=== PATIENT | female | born 1995 | race African-American/Black ===

== ENCOUNTER → 2018-11-20 17:31 | Outpatient (CLI) | payer OTHER ==
[~2018-11-20 17:31] MED LIST: TYLENOL #4 W/CO1 TAB PO
[2018-11-21 05:33] VITALS: BMI 24.8
== END | disposition home or self-care (01) ==
LOC: D.LDO 17:31
PROVIDERS: ATTEND Obstetrics & Gynecology
DX: O26.899 Other specified pregnancy related conditions, unspecified trimester (principal); Z3A.00 Weeks of gestation of pregnancy not specified

== ENCOUNTER 2018-11-21 05:07 | Inpatient (IN) | payer OTHER ==
[~2018-11-21] VITALS: Ht 166.4 cm; Wt 68.5 kg
[2018-11-21 05:33] VITALS: BP 108/57; Ht 166.4 cm; Wt 68.5 kg
[2018-11-21 06:17] LABS: UDS - AMPHET NEGATIVE QUAL (NEGATIVE); UDS - BARB NEGATIVE QUAL (NEGATIVE); UDS - BENZO NEGATIVE QUAL (NEGATIVE); UDS - COCAINE NEGATIVE QUAL (NEGATIVE); UDS - OPIATE NEGATIVE QUAL (NEGATIVE); UDS - PCP NEGATIVE QUAL (NEGATIVE); UDS - THC NEGATIVE QUAL (NEGATIVE)
[2018-11-21 06:25] LABS: HEMATOCRIT 36.4 % (36.0-48.0); HEMOGLOBIN 12.5 g/dL (12-16); MCHC 34.3 g/dL (31.0-37.0); MCV 81.6 fL (80.0-100.0); MEAN PLATELET VOLUME 10.9 fL (7.4-10.4); RBC 4.46 10x6/uL (4.00-5.40); RDW 14.2 % (11.5-14.5)
[2018-11-21 06:46] LABS: APPEARANCE CLEAR (CLEAR); BILIRUBIN NEGATIVE (NEGATIVE); COLOR YELLOW (YELLOW); GLUCOSE NEGATIVE (NEGATIVE); KETONE LARGE mg/dL (NEGATIVE); NITRITE NEGATIVE (NEGATIVE); PROTEIN NEGATIVE (NEGATIVE); SPECIFIC GRAVITY 1.015 (1.005-1.020)
[2018-11-21 20:10] VITALS: BP 114/66
--- NOTE | 2018-11-21 20:10 | NUR ---
PT REC'D IN BED AT THIS TIME. STATES PAIN IS A 5. VSS. LUNGS CLEAR. BS+. FUNDUS FIRM AND MIDLINE U/2 WITH SCANT LOCHIA NOTED. HIRSCH CATH PATENT WITH RADHA URINE NOTED. NO ACUTE DISTRESS NTOED AT THIS TIME. SIDERAILS UP FOR SAFETY. CALL LIGHT IN PT REACH. AARON GALLO
--- NOTE | 2018-11-21 21:10 | NUR ---
PERICARE PROVIDED AND ICE PACK PLACED AT THIS TIME. Sonali COSME RN
--- NOTE | 2018-11-21 23:41 | NUR ---
PT MEDICATED AT THIS TIME FOR PAIN LEVEL OF 8. WILL CONTINUE TO MONITOR. Sonali COMSE RN
--- NOTE | 2018-11-22 00:52 | NUR ---
PT ASLEEP BUT EASILY AWAKENED. PT REPORTS PAIN LEVEL OF 2 AT THIS TIME. Sonali COSME RN
--- NOTE | 2018-11-22 02:25 | NUR ---
PT REC'D IN BED AT THIS TIME. BREAST FEEDING AT THIS TIME. NO DISTRESS N NOTED. Sonali COSME RN
--- NOTE | 2018-11-22 03:59 | NUR ---
pt medicated with norco 10. pericare provided at this time. icepack provided and mackey cath empted. 600 ml of tobi urine noted. ben segal rn
--- NOTE | 2018-11-22 04:50 | NUR ---
Pt resting comfortably at this time. resps even and unlabored. ben segal rn
--- NOTE | 2018-11-22 06:11 | NUR ---
pt resting comfortably at this time. denies pain. denies needs at this time. ice pack to perineum. no distress noted. ben segal rn
[2018-11-22 06:12] LABS: BASOPHILS 0.1 % (0-2); EOSINOPHILS 0.4 % (0-7); IMMATURE GRANULOCYTES 0.5 % (0-5); LYMPHOCYTES 13.8 % (15-50); MCH 27.7 pg (26.0-34.0); MCHC 34.1 g/dL (31.0-37.0); MCV 81.2 fL (80.0-100.0); MONOCYTES 9.4 % (2-11); NEUTROPHILS 75.8 % (40-80); PLATELET COUNT 115 10x3/uL (130-400); RDW 14.3 % (11.5-14.5)
[2018-11-22 06:24] LABS: HEMATOCRIT 25.5 % (36.0-48.0); HEMOGLOBIN 8.7 g/dL (12-16); RBC 3.14 10x6/uL (4.00-5.40); WBC 15.3 10x3/uL (4.8-10.8)
[2018-11-22 07:14] LABS: RAPID PLASMA REAGIN Non Reactive (Non Reactive)
[2018-11-22 07:25] VITALS: BP 102/62
--- NOTE | 2018-11-22 07:25 | NUR ---
AM ASSESSMENT COMPLETED, SEE FLOWSHEET. NEW ICE PACK WITH DERMAPLAST SPRAY TO PERINEUM, ALONG WITH PROCTOFOAM TO PERINEUM, AND TUCKS PADS PLACED TO PERINEUM. IN ROOM IN CRIB, NO DISTRESS NOTED. LARGE MUG OF ICE WATER SERVED TO PT. REGULAR BREAKFAST TRAY ON BEDSIDE TABLE. SR UP X2, CALL LIGHT AND PHONE WITHIN REACH. PT DENIES ALL OTHER NEEDS.
--- NOTE | 2018-11-22 08:30 | NUR ---
DR. FRAUSTO ON UNIT, REPORT GIVEN TO MD BY NATASHA,RN, MD WILL EVALUATE HIRSCH CATH/PERINEAL SWELLING THIS AFTERNOON.
--- NOTE | 2018-11-22 10:35 | NUR ---
pt sitting up in the bed, holding infant. pt denies pain or needs at this time. srup x2, call light and phone within reach.
--- NOTE | 2018-11-22 12:38 | NUR ---
pt sitting up in bed holding . requests pain medication, see emar for all meds administered by this RN. new ice pack to perineum with dermaplast, tucks and proctofoam. moderate labial swelling noted, no bruising to perineum at this time. infant placed in crib swaddled x2, no distress noted. fluids encouraged. srup x2. call light and phone within reach. pt denies anyother needs at this time.
--- NOTE | 2018-11-22 15:00 | NUR ---
to pt's room, pt is lying in bed, holding infant. placed in crib, no distress noted. plan of care discussed with pt to d/c mackey cath, and to ambulate. perineum noted to be intact, no redness, bruising or drainage visualized. mild labial swelling noted. mackey cath dc'd intact with 700 ml's yellow urine in mackey bag. perineal care done with warm wet washcloths, scant rubra lochia, no clots noted. dermaplast, and tucks pads applied to perineum, along with new ice pack. peripanties on. pt assisted out of bed, standing at bedside, pt denies dizziness or sob. pt assisted to ambulate in room, then to couch to sit. pillows placed underneath pt on couch for comfort. in crib placed beside mother. bed linens changed. pt wishes to sit up for a little while. will return for med adm, and vitals. pt denies all other needs at this time.
--- NOTE | 2018-11-22 15:45 | NUR ---
pt continues to sit on couch. cell phone within reach. pt feeding infant at this time. pt denies all other needs.
[2018-11-22 15:52] VITALS: BP 105/68
--- NOTE | 2018-11-22 16:45 | NUR ---
pt assisted back to bed, gait slow and steady. back to bed. pt denies dizziness, or sob, or difficulty breathing. scant rubra lochia noted, fundus firm, u/1, no clots noted. pt denies needing to void. no bladder distension palpated. ice pack to perineum, with tucks pads in place. peripanties on. infant in crib, sleeping, with no distress noted. sr up x2, call light and phone within reach. pt denies all other needs.
--- NOTE | 2018-11-22 18:15 | NUR ---
pt calls out occupational therapy professor light, requesting to get up to the bathroom to try and void. pt assisted to br, gait slow but steady. call light within reach.
--- NOTE | 2018-11-22 18:30 | NUR ---
pt voids 150 ml's dark yellow urine in [facility]. pericare done with warm wet washcloths per self. pt wishes to take a shower. clean linens provided, pt's family at bedside. bed linens changed.
--- NOTE | 2018-11-22 18:45 | NUR ---
pt back to bed, family at bedside. srup x2, call light and phone within reach. pt denies difficulty voiding, states "it did sting just a little when i went to pee". pericare perfomed per self with lidocaine jelly, tucks pads, and peripanties/pads on. large ice water served. pt denies all other needs. sr up x2, call light within reach.
--- NOTE | 2018-11-22 19:09 | NUR ---
BEDSIDE REPORT REC'D FROM Kamaljit MUIR RN. PT REC'D SITTING IN HIGH FOWLERS POSITION CONVERSING WITH VISITORS. PLAN OF CARE DISCUSSED WITH PT, VERBALIZES UNDERSTANDING AND DENIES QUESTIONS.
[2018-11-22 19:15] VITALS: BP 112/68
--- NOTE | 2018-11-22 19:15 | NUR ---
SHIFT ASSESSMENT COMPLETED PER FLOWSHEET. VSS. FUNDUS FIRM MIDLINE AND U2 WITH SCANT RUBRA LOCHIA, NO CLOTS NOTED. 150 MLS TEA COLORED URINE EMPTIED FROM HAT. 3+ BILATERAL LABIAL EDEMA NOTED, LACERATIONS WELL APPROXIMATED WITH SUTURES INTACT, NO S/S OF INFECTION NOTED. PT REPORTS THAT SHE PERFORMED PERICARE WITHOUT DIFFICULTY USING TUX, DERMAPLAST AND LIDOCAINE GEL AND DENIES QUESTIONS, STATES THAT SHE DOES NOT HAVE PERIBOTTLE AND BETADINE, WILL PROVIDE AND EDUCATE ON USE. PAIN 4/10, PERINEAL SORENESS AND BURNING REQUESTS PAIN MEDICATION WHEN AVAILABLE, WILL PROVIDE PER ORDER AND PT REQUEST. REPORTS THAT SHE IS PASSING FLATUS AND VOIDED WITHOUT DIFFICULTY. EDUCATED ON BREAST FEEDING, NIPPLE CARE, AND DIET TO INCREASE BREAST MILK SUPPLY, VERBALIZES UNDERSTANDING AND DENIES QUESTIONS. EDUCATED ON S/S OF INFECTION TO REPORT, VERBALIZES UNDERSTANDING. INFANT FUSSING AND ROOTING, ASSISTED PT WITH GETTING LATCHED PER PT REQUEST. DENIES ADDITIONAL NEEDS AT THIS TIME. BED IN LOW POSITION WITH UPPER SIDE RAILS RAISED X2. CALL LIGHT AND PHONE WITHIN REACH. WILL CONTINUE TO MONITOR.
--- NOTE | 2018-11-22 19:58 | NUR ---
CONTINUES TO C/O PERINEAL BURNING AND STINGING 07/18. NORCO OFFERED PER ORDER AND PREVIOUSLY DISCUSSED, PT STATES THAT SHE WOULD LIKE TO WAIT AT THIS TIME. REPORTS THAT SHE HAS FAMILY COMING TO VISIT AND PAIN MED WILL MAKE HER DROWSY. INSTRUCTED TO NOTIFY RN WHEN SHE WOULD LIKE OR NEEDS MED, VERBALIZES UNDERSTANDING. PERIBOTTLE AND BETADINE PROVIDED, INSTRUCTED ON USE, VERBALIZES UNDERSTANDING AND STATES THAT SHE WILL NOTIFY RN IF ASSISTANCE IS NEEDED. BED IN LOW POSITION WITH UPPER SIDE RAILS RAISED X2. CALL LIGHT AND PHONE WITHIN REACH.
--- NOTE | 2018-11-22 21:39 | NUR ---
PYRIDUM GIVEN PER ORDER. PAIN REMAINS 4/10 PERINEAL BURNING AND STINGING, DENIES NEED FOR INTERVENTION AT THIS TIME. STATES THAT SHE WILL ASK FOR MEDICATION PRN. VOIDED 200 MLS IN HAT, REINFORCED TEACHING ON USE OF PERIBOTTLE WITH BETADINE WASH WITH RETURN DEMONSTRATION OF UNDERSTANDING. DENIES ADDITIONAL NEEDS. ICE WATER PROVIDED AND PT ENCOURAGED TO INCREASE PO FLUIDS, VERBALIZES UNDERSTANDING. BED IN LOW POSITION WITH UPPER SIDE RAILS RAISED X2. CALL LIGHT AND PHONE WITHIN REACH.
--- NOTE | 2018-11-22 23:38 | NUR ---
C/O PERINEAL BURNING, STINGING, ACHING, AND THROBBING 11/17. NORCO GIVEN PER ORDER AND PT REQUEST. UP TO BR, VOIDED 200 MLS ORANGE TINGED URINE IN HAT. PERICARE DONE PER PT. DENIES ADDITIONAL NEEDS. INFANT RESTING IN OPEN CRIB AT BEDSIDE. BED IN LOW POSITION WITH UPPER SIDE RAILS RAISED X2. CALL LIGHT AND PHONE WITHIN REACH. WILL CONTINUE TO MONITOR.
--- NOTE | 2018-11-23 00:47 | NUR ---
PAIN REASSESSMENT COMPLETED, 2-06/17, DENIES NEED FOR ADDITIONAL INTERVENTION. ICE WATER PROVIDED. INFANT RESTING QUIETLY IN OPEN CRIB AT BEDSIDE. BED IN LOW POSITION WITH UPPER SIDE RAILS RAISED X2. CALL LIGHT AND PHONE WITHIN REACH. WILL CONTINUE TO MONITOR.
--- NOTE | 2018-11-23 01:20 | NUR ---
TO NBN PER PT REQUEST. DENIES NEEDS AT THIS TIME. PAIN 1-05/20. REPORTS THAT SHE IS GOING TO TRY TO TAKE A NAP BEFORE NEEDING TO BF AT 0230. BED IN LOW POSITION WITH UPPER SIDE RAILS RAISED X2. CALL LIGHT AND PHONE WITHIN REACH. WILL CONTINUE TO MONITOR.
--- NOTE | 2018-11-23 02:48 | NUR ---
RESTING QUIETLY LAYING ON RIGHT SIDE. RESP REGULAR AND UNLABORED, NO S/S OF DISTRESS NOTED. REMAINS IN NBN. BED IN LOW POSITION WITH UPPER SIDE RAILS RAISED X2. CALL LIGHT AND PHONE WITHIN REACH. WILL CONTINUE TO MONITOR AND ASSIST PRN.
--- NOTE | 2018-11-23 04:31 | NUR ---
RESTING QUIETLY IN SEMI-FOWLERS POSITION. RESP REGULAR AND UNLABORED, NO S/S OF DISTRESS NOTED. REMAINS IN NBN. BED IN LOW POSITION WITH UPPER SIDE RAILS RAISED X2. CALL LIGHT AND PHONE WITHIN REACH. WILL CONTINUE TO MONITOR.
[2018-11-23 07:58] VITALS: BP 105/66
--- NOTE | 2018-11-23 08:03 | NUR ---
AM ASSESSMENT COMPLETED. SEE FLOWSHEET. SRUP X2, CALL LIGHT AND PHONE WITHIN REACH. PT DENIES ALL OTHER NEEDS.
--- NOTE | 2018-11-23 08:39 | OP ---
PATIENT NAME: YOMI ARROYO MEDICAL RECORD: [id number] :93 LOCATION:[id number] ADMISSION DATE:11/21/18 SURGEON: ROYAL FRAUSTO MD DATE OF OPERATION: 11/21/2018 PREDELIVERY DIAGNOSES: 1. at 40 weeks and 1-day gestation. 2. Nonreassuring tracing. POSTDELIVERY DIAGNOSES: 1. Mother delivered at 40 weeks and 1 day. 2. Nonreassuring tracing. PROCEDURE: Vacuum-assisted vaginal delivery. ATTENDING: Royal Frausto MD ANESTHETIC: Continuous lumbar epidural. FINDINGS: Viable female , ELAINE presentation, Apgars were 9 and 9, weight 6 pounds 8 ounces. Deep variable decelerations, requiring vacuum assistance. Periurethral laceration with bilateral vaginal wall lacerations. Midline episiotomy repaired. SPECIMEN REMOVED: Placenta. SPECIMEN DISPOSITION: Discarded. ESTIMATED BLOOD LOSS: 450 cc. DRAINS: Carranza to gravity. INDICATION: The patient is a 22-year-old G1, para 0 at 40 weeks' gestation in the second stage of labor. The patient began to have brisk vaginal bleeding with deep variable decelerations. The patient gave verbal consent for vacuum assist. DESCRIPTION OF THIS PROCEDURE: After informed consent was given, a vacuum was applied and was delivered after 2 contractions with release of the vacuum between each contraction. The patient was noted to be bleeding prior to the delivery. After delivery of the , cords clamped and cut and the infant was passed to the attendant. The cord blood sample was obtained and still pending at the time of this dictation. After delivery of the placenta, the vulva and the vagina was inspected. A midline episiotomy was cut to accommodate the vertex and expedite delivery. There was no extension. Examination of the vaginal vault reveals 2 deep lacerations on both right and left of the posterior fourchette. These extended from the 3 and 9 o'clock respectively, down to the 6 o'clock positions. This was initially closed with running stitch of 3-0 chromic bilaterally. A 2-0 chromic is now used to repair the episiotomy in a continuous stitch. Inspection of the vulva reveals a bleeding periurethral laceration. A red rubber catheter was placed in here and interrupted 4-0 chromic stitches were applied. Carranza catheter was started at the close of this procedure. It was noted that there was nuchal cord that was reduced easily at the time of delivery. Vaginal vault was explored and no sponges retained. Both mother and infant recovered in delivery room. OPERATIVE REPORT [id number] YOMI ARROYO TRANSINT:[id number] Voice Confirmation ID: [id number] DOCUMENT ID: [id number] ROYAL FRAUSTO MD at 0839 CC: [id number] DICTATION DATE: 11/21/18 1213 CRIB PAD MAKER: 11/21/18 1301 ADM IN [facility] [address] [id number]
--- NOTE | 2018-11-23 11:01 | NUR ---
THIS RN TO ROOM FOR PT C/O PAIN. PT ADMIN SCHEDULED MED WELL PRN PAIN MED FOR PAIN RATED 8/10, PERINEAL PRESSURE AND PAIN. SEE EMAR FOR DOC. PT REFUSES NICOTINE PATCH. PT PROVIDED WITH FRESH ICE WATER, DENIES NEEDS. HOLDING AT THIS TIME, AWAKE AND ALERT. SRUx2, CL IN REACH. WILL CONT TO MONITOR.
[2018-11-23] MEDS ORDERED: TYLENOL #4 W/CO1 TAB PO (14:38)
--- NOTE | 2018-11-23 15:00 | NUR ---
DISCHARGE INSTRUCTIONS EXPLAINED TO PT, PT DENIES ALL QUESTIONS. PT PROVIDED WITH COPY OF D/C INSTRUCTIONS, PRESCRIPTION, APPT CARD, AND EDUCATIONAL MATERIAL COVERING VAG DELIVERY, SITZ BATH, AND PP INSTUCTION SHEET. SITZ BATH SENT HOME WITH PT, ALONG WITH PERIBOTTLE AND BETADINE. AWAITING TDAP.
--- NOTE | 2018-11-23 16:00 | NUR ---
pt ambulatory in room, preparing pt for discharge. iv d/c'd with intact. pt dressed and ready for discharge.
--- NOTE | 2018-11-23 16:15 | NUR ---
pt taken out by wheelchair in stable condition with in carseat with pt's brother driving.
== END 2018-11-23 16:15 | disposition home or self-care (01) | DRG 807 ==
LOC: D.LDO 05:07 → D.LD 05:44
PROVIDERS: ADMIT Obstetrics & Gynecology; ATTEND Obstetrics & Gynecology
PROC: 10D07Z6 Extraction of Products of Conception, Vacuum, Via Natural or Artificial Opening (ICD-10-PCS; principal; 2018-11-21)
PROC: 0KQM0ZZ Repair Perineum Muscle, Open Approach (ICD-10-PCS; 2018-11-21)
PROC: 0W8NXZZ Division of Female Perineum, External Approach (ICD-10-PCS; 2018-11-21)
DX: O99.824 Streptococcus B carrier state complicating childbirth (principal); Z37.0 Single live birth; Z3A.40 40 weeks gestation of pregnancy; O76 Abnormality in fetal heart rate and rhythm complicating labor and delivery; O71.82 Other specified trauma to perineum and vulva; O71.4 Obstetric high vaginal laceration alone